=== PATIENT | female | born 1940 | race Asian ===

== ENCOUNTER 2023-12-26 10:13 | Emergency (ER) | payer MEDICARE, OTHER, SELFPAY ==
[2023-12-26 10:22] VITALS: BP 156/81
[2023-12-26] MEDS: VENTOLIN NEBULES 2.5 MG INH (11:25)
[2023-12-26 11:37] VITALS: BP 144/76
[2023-12-26 11:50] LABS: % Basophils 0.9 % (0-2); % Eosinophils 3.1 % (0-6); % Immature Granulocytes 0.2 % (0-0.5); % Lymphocytes 24.7 % (20.5-51.1); % Monocytes 10.3 % (1.7-9.3); % Neutrophils 60.8 % (42.2-75.2); Absolute Eosinophils 0.1 10^3/uL (0-0.7); Absolute Lymphocytes 1.1 10^3/uL (1.2-3.4); Absolute Monocytes 0.5 10^3/uL (0.1-0.6); Absolute Neutrophils 2.7 10^3/uL (1.4-6.5); Hematocrit 32.6 % (37.0-47.0); Hemoglobin 11.4 g/dL (12.0-16.0); Mean Corpuscular Hgb 28.1 pg (27.0-31.0); Mean Corpuscular Volume 80.5 fL (81.0-99.0); Mean Platelet Volume 9.2 fL (7.4-10.4); Nucleated Red Blood Cells % 0 %; Platelet Count 233 10^3/uL (130-400); Red Blood Cell Count 4.05 10^6/uL (4.20-5.40); Red Cell Dist. Width 13.1 % (11.5-14.5); White Blood Cell Count 4.5 10^3/uL (4.8-10.8)
[2023-12-26 12:08] LABS: COVID-19 Antigen Negative (Negative)
[2023-12-26 12:11] LABS: ALT (SGPT) 26 U/L (0-35); AST (SGOT) 29 U/L (14-36); Albumin 4.9 g/dl (3.5-5.0); Alkaline Phosphatase 77 U/L (38-126); Blood Urea Nitrogen 10 mg/dl (7-17); Calcium 9.7 mg/dl (8.4-10.2); Carbon Dioxide 25 mmol/L (22-30); Chloride 101 mmol/L (98-107); Glucose 100 mg/dl (70-99); Potassium 4.6 mmol/L (3.5-5.1); Sodium 132 mmol/L (135-145); Total Bilirubin 0.7 mg/dl (0.2-1.3); Total Protein 8.1 g/dl (6.3-8.2); eGFR > 60.00
[2023-12-26 12:13] VITALS: BP 133/69
[2023-12-26 12:21] LABS: NT-proBNP 180 pg/ml; Troponin I < 0.012 ng/ml
[2023-12-26 12:57] VITALS: BP 142/68
[2023-12-26 13:00] VITALS: BP 136/74
[2023-12-26 14:00] VITALS: BP 115/62
--- NOTE | 2023-12-26 14:18 | ED.GENMED ---
History of Present Illness
General
Chief Complaint: Cough
Source: patient
Exam Limitations: none
Time Seen by Provider: 12/26/23 10:53
Nursing documentation reviewed up to this point in time: agreed with
Travel History
Have you had any contact with someone who has COVID-19?: No
Do you have any symptoms of coronavirus? Fever > 100 degrees, chills, cough, shortness of breath, sore throat, loss of taste or smell, muscle aches, or headache?: No
History of Present Illness
History of Present Illness:
PT IS A 83 Y/O F h/o HTN, HLD
comin from home with family who care for her
started with sob and cough 1 week ago
went to [facility]
had w/u includin blood work, cxr, ekg, ct pe (they believe) which was all neg
given oral cough syrup which she finished (guaifenessin w codeine) and then she saw her pcp who gave her robitussin DM syrup and an inhaler
cough is worse and she is couhgin gfrequently at night which his why she is here
she has not had any worsening shortness of breath, chest pain, syncope, fever, vomiting, confusion, not eating, leg swelling
Past History
Past History
ED Past Medical History: HTN and Hypercholesterolemia
ED Past Surgical History: None
Social History
Tobacco: Non-smoker
Alcohol: None
Living: with family
Review of Systems
Review of Systems
Allergies reviewed?: Yes
All Other Systems: Not applicable
Phy Exam
Physical Exam
Physical Exam:
GENERAL: Alert , in no apparent distress, nontoxic, no distress
EYE: pupils equal and reactive
NECK: Supple
ENT: b/l TM s clear, pharynx erythematous but no tonsillar hypertrophy or exudates
CARDIAC: Regular rate and rhythm, no edema
LUNGS: +occ cough, faint wheezing b/l, rhonchi upper lobes b.l, no tachypnea
ABDOMEN: Soft, without focal tenderness, no r/g, no cvat, normal bowel sounds
NEUROLOGICAL: Alert and oriented, no focal neuro deficits
SKIN: Warm and dry, skin intact.
MUSCULOSKELETAL: No edema, well perfused.
PSYCH: Normal and appropriate interaction.
Course
Orders/Labs/Results
Orders:
Orders
12/26/23 11:09
CR Chest - 2 Views Urgent
Comment:
Reason For Exam: COUGH
12/26/23 11:15
Electrocardiogram (*1) Urgent
Reason for Study: Shortness of Breath
EKG- Treatment ONCE
Albuterol Nebs [Ventolin Nebules] 2.5 mg INH R NOW STA
12/26/23 11:25
COVID-19 Antigen Urgent
Source: Nasal Swab
Complete Blood Count/With Diff Urgent
Comprehensive Metabolic Panel Urgent
NT-proBNP Urgent
Troponin I Urgent
Influenza A+B Rapid Molecular Urgent
MARIA EUGENIA Source: Nasal Swab
Specimen Description:
12/26/23 14:21
Dexamethasone Sod Phosphate [Decadron] 10 mg IV NOW STA
12/26/23 14:22
Doxycycline [Vibramycin] 100 mg PO NOW STA
Abnormal Lab Results
12/26/23
11:25
WBC 4.5 L 10^3/uL
(4.8-10.8)
RBC 4.05 L 10^6/uL
(4.20-5.40)
Hgb 11.4 L g/dL
(12.0-16.0)
Hct 32.6 L %
(37.0-47.0)
MCV 80.5 L fL
(81.0-99.0)
Absolute Lymphs (auto) 1.1 L 10^3/uL
(1.2-3.4)
Monocytes % 10.3 H %
(1.7-9.3)
Sodium 132 L mmol/L
(135-145)
Creatinine 0.4 L mg/dL
(0.6-1.0)
Glucose 100 H mg/dl
(70-99)
12/26/23 11:25
12/26/23 11:25
Vital Signs
Initial and Last Documented VS:
Initial Vital Signs
Temp Pulse Resp BP Pulse Ox
99.7 F 74 18 156/81 98
12/26/23 10:22 12/26/23 10:22 12/26/23 10:22 12/26/23 10:22 12/26/23 10:22
Last Documented Vital Signs
Temp Pulse Resp BP Pulse Ox
99.7 F 70 15 115/62 96
12/26/23 10:22 12/26/23 14:30 12/26/23 14:15 12/26/23 14:00 12/26/23 14:30
MDM/Problems Addressed
Differential Diagnosis Includes:
uri, bronchitis, pneuonmina
already r/o for PE
MDM/Problems Addressed:
83-year-old female coming from home history of hypertension and hyperlipidemia here with family with report of productive cough over the last week associated with shortness of breath. Patient went to [facility] 5 days ago where she had a workup
including EKG, labs to check her heart, likely a PE study, based on the family's telling me which were all negative. Patient was discharged with a cough syrup. She continued to cough throughout the week and went her to her family doctor where they
gave her Robitussin DM and inhaler. There was no spacer given to her. She has continued to have a cough which is more productive with yellow mucus. She has not had a known fever. She is still eating and drinking and does not feel overly severely
fatigued.
On exam the patient's not hypoxic, no respiratory distress but has bilateral upper lobe rhonchi and some wheezing. She does have a wet sounding cough. She is no edema. EKG is sinus rhythm with a first-degree block with no ischemic changes. Her
chest x-ray was independently reviewed by me and appreciated to have some atelectasis versus an early pneumonia. Patient's white count is slightly low at 4.5, her troponin was negative. She feels better after an albuterol neb. She still having
some rhonchi but the wheezing improved. Will give her one-time dose of Decadron and a spacer for her inhaler. Will make sure that the patient can tolerate walking without desat
And if so we will discharge with empiric antibiotics to treat an early pneumonia versus a bronchitis. She was offered admission but family would feel most comfortable trial of outpatient management but will bring her back if she gets worse
*Critical Care Note
Total Time (30-74mins, 75-104mins- exclusive of procedures): Not Applicable
ED Attending Note
-
Portions of this chart may have been created with voice recognition software.� Occasional wrong word or��sound alike� substitutions may have occurred due to the inherent limitations of voice recognition software.
Discharge Plan
Departure
Patient Disposition: Home (Routine Discharge)
Date of Disposition: 12/26/23
Time of Disposition: 14:29
Patient with high blood pressure during this ER visit?: No
Condition: Fair
Covid-19: Not Applicable
Discharge Problem:
Acute bronchitis
Instructions: Acute Bronchitis, Adult (DC)
Prescriptions:
New
doxycycline monohydrate 100 mg capsule
100 mg PO BID Qty: 14 0RF
No Action
benzonatate 100 mg capsule
100 mg PO TID PRN (Reason: Cough) Qty: 14 0RF
Referrals:
Zeb Bowers MD [Family Provider] - Follow up in 2-3 days
Activity Restrictions/Additional Instructions:
Your mom's cough could be from bronchitis or an early pneumonia. We are treating her with antibiotics, doxycycline 100 mg twice a day for 7 days. Encourage fluids and make sure she is eating. For her cough you can use the Robitussin syrup as well
as the inhaler 1 or 2 puffs in the chamber every 4-6 hours. Make sure she uses the inhaler within her spacer and takes a deep breath and tries to hold it for 6-10 seconds
Watch her symptoms closely and return to the hospital for worsening cough, shortness of breath, chest pain, passing out, leg swelling, generalized weakness or not eating or any concerns. Otherwise follow-up with Dr. Bowers this week
Interventions
Interventions:
*ED COVID-19 Vaccine History Last Done: 12/26/23 10:22
*Nursing Disposition Last Done: 12/26/23 14:48
ED- Pulmonary Assessment Last Done: 12/26/23 11:30
Discharge Date and Time
Discharge Date/Time: 12/26/23 14:48
Print Language: KAZAKH
[2023-12-26] MEDS: VIBRAMYCIN 100 MG PO (14:36)
[2023-12-26] MEDS: DECADRON 10 MG IV (14:36)
== END 2023-12-26 14:48 | disposition home or self-care (01) ==
LOC: EMR 10:13
PROVIDERS: Physician Assistant; EMERGENCY PHYSICIAN Emergency Medicine; FAMILY PHYSICIAN Family Medicine
DX: J20.9 Acute bronchitis, unspecified (principal); Z11.52 Encounter for screening for COVID-19; I10 Essential (primary) hypertension; E78.00 Pure hypercholesterolemia, unspecified
CPT/HCPCS: 99284; 96374; 94640; 71046; 80053; 83880; 84484; 85025; 87502; 87811; 93005

== ENCOUNTER 2024-03-28 10:03 | Emergency (ER) | payer MEDICARE, OTHER, SELFPAY ==
[2024-03-28 10:06] VITALS: BP 158/75
--- NOTE | 2024-03-28 11:30 | ED.GENMED ---
History of Present Illness
General
Chief Complaint: Back Pain
Time Seen by Provider: 03/28/24 10:49
History of Present Illness
History of Present Illness:
83-year-old female with history of hypertension and hyperlipidemia presenting to the emergency department for back pain. Patient arrives with her son's note for the past month she has been having lower back pain. Denies any inciting injury or
trauma. Patient reports the back pain is right-sided. Denies significant radiation to her legs. Denies numbness to her legs. Denies any urinary or fecal incontinence. Denies fever. She tried Tylenol, Motrin, pain patch, developed a rash from
the pain patch. Yesterday, patient complaining of increased fatigue, had difficulty ambulating from generalized weakness. Denies abdominal pain, chest pain, difficulty breathing. Denies additional acute medical complaints.
Past History
Past History
ED Past Medical History: HTN and Hypercholesterolemia
ED Past Surgical History: None
Social History
Tobacco: Non-smoker
Alcohol: None
Living: with family
Phy Exam
Physical Exam
Physical Exam:
General: Well-appearing, no clinical signs of dehydration, nontoxic and in no acute distress
HEENT: protecting airway
Neck: appears supple
CV: Normal heart rate, regular rhythm, no evidence of cyanosis
Resp: No accessory muscle use, no increased work of breathing, lungs clear to auscultation bilaterally
Abd: Soft and non-distended, no tenderness to palpation, normal bowel sounds
Extremities: No deformities, no swelling, no erythema, pulses and sensation intact
Back: Tenderness to midline lumbar spine and right paraspinal musculature extending to the lateral lumbar musculature. No step-offs. 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
No redness extending beyond lidocaine patch. Range of motion to the lower extremities equal and intact. Distal pulses sensation is intact.
Neuro: alert, no focal neurologic deficit
: deferred
Rectal: deferred
Psych: Normal affect
Skin: Intact
Course
Orders/Labs/Results
Orders:
Orders
03/28/24 11:16
CT Lumbar Spine W/o Iv Contras Urgent
Comment:
Reason For Exam: pain x 1 month, midline and L-lateral
03/28/24 11:17
Ketorolac [Toradol] 15 mg IV NOW STA
03/28/24 11:39
Basic Metabolic Panel Urgent
Complete Blood Count/With Diff Urgent
03/28/24 13:16
Urinalysis Reflex To Culture Urgent
Date Specimen was Collected: 03/28/24
Time Specimen was Collected: 13:05
03/28/24 14:07
Case Management Consult ONCE
Case Management Consult: VN/Home Care
Abnormal Lab Results
03/28/24
11:39
MPV 10.7 H fL
(7.4-10.4)
Absolute Lymphs (auto) 1.1 L 10^3/uL
(1.2-3.4)
Lymphocytes % 20.2 L %
(20.5-51.1)
Creatinine 0.5 L mg/dL
(0.6-1.0)
Glucose 118 H mg/dl
(70-99)
03/28/24 11:39
03/28/24 11:39
Vital Signs
Initial and Last Documented VS:
Initial Vital Signs
Temp Pulse Resp BP Pulse Ox
98.1 F 66 18 158/75 98
03/28/24 10:06 03/28/24 10:06 03/28/24 10:06 03/28/24 10:06 03/28/24 10:06
Last Documented Vital Signs
Temp Pulse Resp BP Pulse Ox
98.1 F 62 19 146/70 97
03/28/24 10:06 03/28/24 13:21 03/28/24 13:21 03/28/24 13:21 03/28/24 13:21
MDM/Problems Addressed
MDM/Problems Addressed:
83-year-old female with history of hypertension hyperlipidemia presenting for 1 month of lower back pain. Vital signs ar significant for mild hypertension.
On exam, patient well-appearing, no acute distress, resting comfortably. Generalized tenderness to the upper lumbar spine as well as the right paraspinal musculature and lateral lumbar musculature. No report of trauma with lower suspicion for
acute fracture or malalignment. Range of motion of the back is intact. Patient does have an area of redness at the lumbar back, however clearly demarcated from prior lidocaine patch. Suspect a skin reaction from dermatographia rather than
infectious component. Do not suspect deep space infection. No weakness to lower extremities, no numbness. No report of bowel/bladder issues. Lower suspicion for spinal compressive issue. Suspect musculoskeletal versus sciatic component to
symptoms. Given duration of symptoms, will obtain CT back imaging as well as laboratory analysis.
14:10 -patient's labs are unremarkable. CT shows degenerative changes and disc bulges, consistent with patient's symptoms. Patient was able to ambulate, reports feeling better after Toradol. At this time, again lower suspicion for severe
pathology. Patient was slightly unsteady, would benefit from home physical therapy. Did consult with case management who was able to provide referral. Explained to family, agreeable to plan. Return precautions discussed and patient and family
verbalized understanding
*Critical Care Note
Total Time (30-74mins, 75-104mins- exclusive of procedures): Not Applicable
ED Attending Note
-
Portions of this chart may have been created with voice recognition software.� Occasional wrong word or��sound alike� substitutions may have occurred due to the inherent limitations of voice recognition software.
Discharge Plan
Departure
Prescriptions:
No Action
benzonatate 100 mg capsule
100 mg PO TID PRN (Reason: Cough) Qty: 14 0RF
doxycycline monohydrate 100 mg capsule
100 mg PO BID Qty: 14 0RF
Referrals:
Zeb Bowers MD [Family Provider] -
Interventions
Interventions:
*Risk Screen - Suicide Last Done: 03/28/24 10:06
*General Assessment Last Done: 03/28/24 10:06
*Neglect/Abuse Screening Last Done: 03/28/24 10:06
*ED COVID-19 Vaccine History Last Done: 03/28/24 10:06
ED-Musculoskeletal Assessment Last Done: 03/28/24 11:47
Discharge Date and Time
Print Language: ESTONIAN
[2024-03-28 11:33] VITALS: BMI 22.3
[2024-03-28] MEDS: TORADOL 15 MG IV (11:43)
[2024-03-28 11:47] VITALS: BP 137/73
[2024-03-28 12:06] LABS: % Basophils 0.5 % (0-2); % Eosinophils 2.7 % (0-6); % Immature Granulocytes 0.2 % (0-0.5); % Lymphocytes 20.2 % (20.5-51.1); % Monocytes 6.6 % (1.7-9.3); % Neutrophils 69.8 % (42.2-75.2); Absolute Eosinophils 0.2 10^3/uL (0-0.7); Absolute Lymphocytes 1.1 10^3/uL (1.2-3.4); Absolute Monocytes 0.4 10^3/uL (0.1-0.6); Absolute Neutrophils 3.9 10^3/uL (1.4-6.5); Hemoglobin 12.7 g/dL (12.0-16.0); Mean Corp Hgb Conc. 34.3 g/dL (33.0-37.0); Mean Corpuscular Hgb 28.3 pg (27.0-31.0); Mean Corpuscular Volume 82.4 fL (81.0-99.0); Mean Platelet Volume 10.7 fL (7.4-10.4); Nucleated Red Blood Cells % 0 %; Platelet Count 216 10^3/uL (130-400); Red Blood Cell Count 4.49 10^6/uL (4.20-5.40); Red Cell Dist. Width 14.2 % (11.5-14.5); White Blood Cell Count 5.6 10^3/uL (4.8-10.8)
[2024-03-28 12:34] LABS: Blood Urea Nitrogen 11 mg/dl (7-17); Calcium 9.6 mg/dl (8.4-10.2); Carbon Dioxide 23 mmol/L (22-30); Chloride 103 mmol/L (98-107); Estimated Creatinine Clearance 52 ml/min; Glucose 118 mg/dl (70-99); Sodium 136 mmol/L (135-145); eGFR > 60.00
[2024-03-28 13:21] VITALS: BP 146/70
[2024-03-28 13:31] LABS: Urine Albumin Negative (Neg - Trace); Urine Bilirubin Negative (Negative); Urine Character Clear (Clear); Urine Color Straw; Urine Glucose Negative (Negative); Urine Ketone Negative (Negative); Urine Leukocyte Negative (Negative); Urine Nitrite Negative (Negative); Urine Occult Blood Negative (Negative); Urine Urobilinogen Negative (Neg - 1+)
--- NOTE | 2024-03-28 14:17 | CM ---
CM reviewed medical records. CM was consulted for VN. CM met with patient and family in room. Patient and family are agreeable to [facility]. Referral sent to [facility] residential collections. CM updated bedside RN and ED physician.
[2024-03-28 14:48] VITALS: BP 141/73
--- NOTE | 2024-03-28 15:09 | VNURNOTE ---
Went to patient's ER room to meet and explain [facility] services. No one in room. Call placed to patient's daughter, Virginia, no answer. [facility] liaison left message with contact info. Referral placed in [facility].
== END 2024-03-28 15:07 | disposition home or self-care (01) ==
LOC: EMR 10:03
PROVIDERS: EMERGENCY PHYSICIAN Student in an Organized Health Care Education/Training Program; FAMILY PHYSICIAN Family Medicine
DX: M54.50 Low back pain, unspecified (principal); R53.83 Other fatigue; R53.1 Weakness; R26.2 Difficulty in walking, not elsewhere classified; L50.3 Dermatographic urticaria; I10 Essential (primary) hypertension; E78.00 Pure hypercholesterolemia, unspecified
CPT/HCPCS: 99284; 96374; 72131; 80048; 81003; 85025

== ENCOUNTER 2024-04-06 01:30 | Emergency (ER) | payer MEDICARE, OTHER, SELFPAY ==
[2024-04-06 01:33] VITALS: BP 137/72
[2024-04-06 01:55] LABS: COVID-19 Antigen Positive (Negative)
[2024-04-06 02:12] VITALS: BP 151/69
--- NOTE | 2024-04-06 02:17 | ED.GENMED ---
History of Present Illness
<JEAN Garcia - Last Filed: 04/06/24 03:42>
General
Chief Complaint: Breathing Problem
Source: family
Exam Limitations: none
Time Seen by Provider: 04/06/24 01:52
History of Present Illness
History of Present Illness:
Patient is an 83 y/o Bel[place]an speaking female with PMHx of HTN and HLD presenting with shortness of breath x5 hours. The patient's son is interpreting. She states she started experiencing shortness of breath and difficulty breathing at around 9
o'clock tonight. She states it came on suddenly and occurs all the time. She states she took Theraflu an hour ago which made her breathing worse. She states she is also experiencing a headache that starts at the top of her head and radiates to the
back of her neck. She states this is new for her and also started at 9pm tonight. She took Ketorolac an hour ago with no relief. She also states she has a cough that started an hour ago. She states it is dry cough and she is not coughing up phlegm.
She denies any fever, sore throat, chest pain, nausea, vomiting, diarrhea, urinary symptoms, or weight loss. She denies any recent sick contacts.
Past History
<JEAN Garcia - Last Filed: 04/06/24 03:42>
Past History
ED Past Medical History: HTN and Hypercholesterolemia
ED Past Surgical History: None
Social History
Tobacco: Non-smoker
Alcohol: None
Living: with family
Phy Exam
<JEAN Garcia - Last Filed: 04/06/24 03:42>
Physical Exam
Physical Exam:
GENERAL: Alert , in no apparent distress
EYE: pupils equal and reactive
Throat: Airway intact, no exudates
NECK: Supple, no significant adenopathy.
CARDIAC: Regular rate and rhythm . No murmurs.
LUNGS: Clear breath sounds bilaterally, no acute respiratory distress, no wheezes/rales/rhonchi
ABDOMEN: Soft, nondistended, nontender.
NEUROLOGICAL: Alert and oriented, no focal neuro deficits
SKIN: Warm and dry, skin intact. No obvious signs of dehydration.
MUSCULOSKELETAL: No edema, well perfused. Full ROM of the neck. No pain on palpation of the neck.
PSYCH: Normal and appropriate interaction.
Scores
<JEAN Garcia - Last Filed: 04/06/24 03:42>
Heart Failure Risk
Heart Failure Risk Score: Not Applicable
Course
<Avila Brooke [facility] - Last Filed: 04/06/24 03:42>
Orders/Labs/Results
Orders:
Orders
04/06/24 01:37
Electrocardiogram (*1) Urgent
Reason for Study: Shortness of Breath
EKG- Treatment ONCE
04/06/24 01:43
COVID-19 Antigen Urgent
Source: Nasal Swab
Influenza A+B Rapid Molecular Urgent
MARIA EUGENIA Source: Nasal Swab
Specimen Description:
04/06/24 02:02
Cardiac Monitoring- Treatment ONCE
O2 Therapy [RESP] Urgent
Titrate/Wean O2 to maintain O2 sat greater than (%): 93
Special Instructions: TO MAINTAIN CONTINUOUS O2 SATS >/= 93%
04/06/24 02:33
Complete Blood Count/With Diff Urgent
Comprehensive Metabolic Panel Urgent
NT-proBNP Urgent
Troponin I Urgent
04/06/24 02:50
CR Chest - 2 Views Urgent
Comment:
Reason For Exam: Shortness of breath
04/06/24 03:34
Nirmatrelvir/Ritonavir [Paxlovid 2X150 mg-100 mg Dose Pack] 1 dose PO NOW STA
Abnormal Lab Results
04/06/24 04/06/24
01:43 02:33
RBC 4.03 L 10^6/uL
(4.20-5.40)
Hgb 11.4 L g/dL
(12.0-16.0)
Hct 32.3 L %
(37.0-47.0)
MCV 80.1 L fL
(81.0-99.0)
Absolute Lymphs (auto) 0.6 L 10^3/uL
(1.2-3.4)
Lymphocytes % 13.0 L %
(20.5-51.1)
Monocytes % 13.0 H %
(1.7-9.3)
Creatinine 0.5 L mg/dL
(0.6-1.0)
Glucose 132 H mg/dl
(70-99)
SARS-CoV-2 Antigen Positive A
(Negative)
04/06/24 02:33
04/06/24 02:33
Vital Signs
Initial and Last Documented VS:
Initial Vital Signs
Temp Pulse Resp BP Pulse Ox
98.5 F 71 16 137/72 99
04/06/24 01:33 04/06/24 01:33 04/06/24 01:33 04/06/24 01:33 04/06/24 01:33
Last Documented Vital Signs
Temp Pulse Resp BP Pulse Ox
98.1 F 65 14 151/69 98
04/06/24 02:00 04/06/24 02:45 04/06/24 02:45 04/06/24 02:12 04/06/24 02:45
Joselt;Ross Conway DO - Last Filed: 04/06/24 03:42>
Orders/Labs/Results
Orders:
Orders
04/06/24 01:37
Electrocardiogram (*1) Urgent
Reason for Study: Shortness of Breath
EKG- Treatment ONCE
04/06/24 01:43
COVID-19 Antigen Urgent
Source: Nasal Swab
Influenza A+B Rapid Molecular Urgent
MARIA EUGENIA Source: Nasal Swab
Specimen Description:
04/06/24 02:02
Cardiac Monitoring- Treatment ONCE
O2 Therapy [RESP] Urgent
Titrate/Wean O2 to maintain O2 sat greater than (%): 93
Special Instructions: TO MAINTAIN CONTINUOUS O2 SATS >/= 93%
04/06/24 02:33
Complete Blood Count/With Diff Urgent
Comprehensive Metabolic Panel Urgent
NT-proBNP Urgent
Troponin I Urgent
04/06/24 02:50
CR Chest - 2 Views Urgent
Comment:
Reason For Exam: Shortness of breath
04/06/24 03:34
Nirmatrelvir/Ritonavir [Paxlovid 2X150 mg-100 mg Dose Pack] 1 dose PO NOW STA
Abnormal Lab Results
04/06/24 04/06/24
01:43 02:33
RBC 4.03 L 10^6/uL
(4.20-5.40)
Hgb 11.4 L g/dL
(12.0-16.0)
Hct 32.3 L %
(37.0-47.0)
MCV 80.1 L fL
(81.0-99.0)
Absolute Lymphs (auto) 0.6 L 10^3/uL
(1.2-3.4)
Lymphocytes % 13.0 L %
(20.5-51.1)
Monocytes % 13.0 H %
(1.7-9.3)
Creatinine 0.5 L mg/dL
(0.6-1.0)
Glucose 132 H mg/dl
(70-99)
SARS-CoV-2 Antigen Positive A
(Negative)
04/06/24 02:33
04/06/24 02:33
Vital Signs
Initial and Last Documented VS:
Initial Vital Signs
Temp Pulse Resp BP Pulse Ox
98.5 F 71 16 137/72 99
04/06/24 01:33 04/06/24 01:33 04/06/24 01:33 04/06/24 01:33 04/06/24 01:33
Last Documented Vital Signs
Temp Pulse Resp BP Pulse Ox
98.1 F 65 14 151/69 98
04/06/24 02:00 04/06/24 02:45 04/06/24 02:45 04/06/24 02:12 04/06/24 02:45
<JEAN Garcia - Last Filed: 04/06/24 03:42>
MDM/Problems Addressed
Differential Diagnosis Includes:
Differential diagnosis includes but is not limited to covid, flu, pneumonia.
<JEAN Garcia - Last Filed: 04/06/24 03:42>
*Radiology
Radiology exam reviewed: radiology read reviewed
*Pulse Oximetry
Patient hypoxic: no
*EKG
Interpreted by ED Provider?: Yes
EKG Intrepretation Date: 04/06/24
Interpretation: abnormal
Comparison EKG: no changes
Heart Rate: 67
Rate: normal
Rhythm: sinus
[place]: normal axis
Interval: first degree heart block
QRS Pattern: normal QRS
Ischemia: no ischemia
*Machine Setter Automatic Interpretation
Rate: Machine Setter Automatic- N/A
*Critical Care Note
Total Time (30-74mins, 75-104mins- exclusive of procedures): Not Applicable
<Ross Conway DO - Last Filed: 04/06/24 03:42>
*Radiology
Radiology exam reviewed: all reviewed NAD by ED Provider
<JEAN Garcia - Last Filed: 04/06/24 03:42>
Update Note
Update Note:
Rapid covid positive. CXR is unremarkable.
ED Attending Note
<JEAN Garcia - Last Filed: 04/06/24 03:42>
-
Portions of this chart may have been created with voice recognition software.� Occasional wrong word or��sound alike� substitutions may have occurred due to the inherent limitations of voice recognition software.
<Ross Conway DO - Last Filed: 04/06/24 03:42>
ED Attending Note
Patient seen and examined by attending physician: Yes
I performed the substantive portion of visit, reviewed & personally made and approve the management plan that is documented in note by myself or LILLIE.: Yes
ED Attending Note:
This a pleasant 83-year-old female presents with shortness of breath, headache, and high blood pressure. Patient started experiencing this shortness of breath around 9 PM. She took TheraFlu which did not help. Patient states that her shortness of
breath has improved. Patient does report having a dry cough. Denies fever, chills, chest pain, or nausea or vomiting. Patient was seen in conjunction with the PA student. I have reviewed and agree with the history and treatment plan presented.
On my independent physical exam, patient is awake, alert, and oriented x3, no acute distress. Accompanied by her son who is present at the bedside. Heart is regular rate and rhythm. Lungs are clear to auscultation bilaterally without wheezes
rales or rhonchi. She is acting appropriately according to son.
Patient tested positive for COVID. Will start Paxlovid. Patient to be discharged home.
Discharge Plan
Departure
Patient Disposition: Home (Routine Discharge)
Date of Disposition: 04/06/24
Time of Disposition: 03:40
Patient with high blood pressure during this ER visit?: Yes
Condition: Good
Covid-19: Confirmed COVID-19
Discharge Problem:
COVID-19
Instructions: Nirmatrelvir and Ritonavir, COVID-19 in adults - Discharge instructions
Prescriptions:
New
Paxlovid 300 mg (150 mg x 2)-100 mg tablets,dose pack
See Rx Instructions .ROUTE .COMPLEX Qty: 30 0RF
Rx Instructions:
take TWO 150 mg tablets of nirmatrelvir with ONE 100 mg tablet of ritonavir twice daily for 5 days
No Action
Amlodipine Bestlate
5 mg PO DAILY
atorvastatin 20 mg Tablet
20 mg PO DAILY
ketorolac 10 mg Tablet
10 mg PO Q8H PRN (Reason: pain)
Rx Instructions:
maximum total duration of 5 days from all oral, intranasal, or parenteral formulations
pitavastatin calcium 4 mg Tablet
4 mg PO DAILY
Referrals:
Zeb Bowers MD [Family Provider] -
Activity Restrictions/Additional Instructions:
Your prescriptions were sent electronically to the pharmacy that you specified.
It was a pleasure meeting you and taking part in your care. We hope for your continued healing and wellness.
Please read discharge instructions in their entirety. However, they are for general education and may not describe your exact diagnosis at discharge. Information on your ER visit and medical conditions were discussed with you along with appropriate
follow up information...
If indicated, please take your medications as instructed and indicated on discharge paperwork.
Please schedule a follow up appointment as directed. Call to schedule an appointment
Please return to the emergency department with ANY change in, persisting, or worsening of symptoms. If any of your symptoms do not improve, or persist, or become more severe within 6-12 hours, please return to the emergency department for further
care.
Please return to the emergency department if you develop a headache, neck pain/stiffness, fever greater than 100.4F, chest pain, shortness of breath, persistent nausea, vomiting, slurred speech, difficulty walking, numbness/tingling, weakness, signs
of infection or any other symptoms that are worrisome to you.
If you have any questions or concerns please do not hesitate to call the Hospital at or E-mail me directly at [email or web address]
Interventions
Interventions:
*Risk Screen - Suicide Last Done: 04/06/24 02:00
*General Assessment Last Done: 04/06/24 01:33
ED- Fall Risk Assessment Last Done: 04/06/24 02:00
*ED COVID-19 Vaccine History Last Done: 04/06/24 01:33
ED- Cardiac Assessment Last Done: 04/06/24 02:00
ED- Pulmonary Assessment Last Done: 04/06/24 02:00
Discharge Date and Time
Print Language: PAKISTANI
[2024-04-06 02:39] LABS: % Eosinophils 3.3 % (0-6); % Immature Granulocytes 0.2 % (0-0.5); % Neutrophils 69.5 % (42.2-75.2); Absolute Basophils 0.1 10^3/uL (0-0.2); Absolute Eosinophils 0.2 10^3/uL (0-0.7); Absolute Lymphocytes 0.6 10^3/uL (1.2-3.4); Absolute Monocytes 0.6 10^3/uL (0.1-0.6); Absolute Neutrophils 3.3 10^3/uL (1.4-6.5); Hematocrit 32.3 % (37.0-47.0); Hemoglobin 11.4 g/dL (12.0-16.0); Mean Corp Hgb Conc. 35.3 g/dL (33.0-37.0); Mean Corpuscular Hgb 28.3 pg (27.0-31.0); Mean Corpuscular Volume 80.1 fL (81.0-99.0); Mean Platelet Volume 9.7 fL (7.4-10.4); Nucleated Red Blood Cells % 0 %; Platelet Count 183 10^3/uL (130-400); Red Blood Cell Count 4.03 10^6/uL (4.20-5.40); Red Cell Dist. Width 13.9 % (11.5-14.5); White Blood Cell Count 4.8 10^3/uL (4.8-10.8)
[2024-04-06 02:53] LABS: ALT (SGPT) 21 U/L (0-35); AST (SGOT) 29 U/L (14-36); Albumin 4.8 g/dl (3.5-5.0); Alkaline Phosphatase 76 U/L (38-126); Blood Urea Nitrogen 7 mg/dl (7-17); Calcium 9.2 mg/dl (8.4-10.2); Carbon Dioxide 22 mmol/L (22-30); Chloride 102 mmol/L (98-107); Glucose 132 mg/dl (70-99); Potassium 3.9 mmol/L (3.5-5.1); Sodium 135 mmol/L (135-145); Total Protein 7.4 g/dl (6.3-8.2); eGFR > 60.00
[2024-04-06 03:06] LABS: NT-proBNP 158 pg/ml; Troponin I 0.013 ng/ml
[2024-04-06 03:09] VITALS: BP 159/74
[2024-04-06 04:00] VITALS: BP 116/62
[2024-04-06] MEDS: PAXLOVID 2X150 MG-100 MG DOSE PACK 1 DOSE PO (04:04)
== END 2024-04-06 04:10 | disposition home or self-care (01) ==
LOC: EMR 01:30
PROVIDERS: EMERGENCY PHYSICIAN Student in an Organized Health Care Education/Training Program; FAMILY PHYSICIAN Family Medicine
DX: R06.02 Shortness of breath (principal); I10 Essential (primary) hypertension; E78.00 Pure hypercholesterolemia, unspecified
CPT/HCPCS: 99283; 71046; 80053; 83880; 84484; 85025; 87502; 87811; 93005

== ENCOUNTER 2024-06-02 18:05 | Emergency (ER) | payer MEDICARE, OTHER, SELFPAY ==
[2024-06-02 18:11] VITALS: BP 129/68
--- NOTE | 2024-06-02 18:11 | ED.GENMED ---
ED Provider Triage
<Mihaela Antonio PA-C - Last Filed: 06/02/24 18:16>
-
Patient seen by provider in Triage?: Seen in Triage
Attestation: A medical screening examination has been initiated by a qualified medical provider. Based on the assessment performed at this time, it has been determined that an emergent medical condition may exist and the patient has been informed
that further medical evaluation and possible additional diagnostic testing may be needed.
HPI: 83yoF here with generalized weakness, fatigue, cough x 2 days. Also having dizziness. Daughter is providing translation.
GENERAL: Alert , in no apparent distress
EYE: No visual abnormalities.
NECK: Trachea midline
ENT: No visible abnormalities.
LUNGS: No acute respiratory distress
NEUROLOGICAL: Alert and oriented
SKIN: Skin intact. No visible changes.
MUSCULOSKELETAL: Moving extremities normally
PSYCH: Normal and appropriate interaction.
This is a medical evaluation conducted in person to initiate diagnostic evaluation and provide initial therapeutics. Please see further documentation by the treating clinician.
Cardiac labs, EKG, COVID/flu swab, and CXR ordered.
History of Present Illness
<Mihaela Antonio PA-C - Last Filed: 06/02/24 18:16>
General
Chief Complaint: Breathing Problem
Time Seen by Provider: 06/02/24 20:45
<PAT Hawkins - Last Filed: 06/02/24 21:21>
General
Source: family
Exam Limitations: none
Nursing documentation reviewed up to this point in time: agreed with
History of Present Illness
History of Present Illness:
Patient is an 83 yr old female brought to the ER by daughters who live with patient. Daughters report patient has had cold symptoms for the past several days with cough and they were concerned about her breathing. They report no fever. They
report cough seems to worsen in the middle of the night. No other sick contacts at home. They do report patient is eating and drinking however has slight decreased appetite and seems weaker than normal. Pt denies any chest pain, no cardiac
history.
Patient presents awake alert she denies any shortness of breath now she denies any chest pain currently.
Past History
<Mihaela Antonio PA-C - Last Filed: 06/02/24 18:16>
Past History
ED Past Medical History: HTN and Hypercholesterolemia
ED Past Surgical History: None
Social History
Tobacco: Non-smoker
Alcohol: None
Living: with family
Review of Systems
<PAT Hawkins - Last Filed: 06/02/24 21:21>
Review of Systems
Allergies reviewed?: Yes
Other source history: family
Constitutional: Reports fatigue
EENT: Reports no symptoms
Respiratory: Reports cough and trouble breathing
Cardiac: Reports no symptoms; Denies chest pain or palpitations
ABD/GI: Reports other (dec appetite); Denies abdominal pain or vomiting
: Reports no symptoms
Musculoskeletal: Reports no symptoms
Skin: Reports no symptoms
Neurological: Reports no symptoms
Psychiatric: Reports no symptoms
Phy Exam
<PAT Hawkins - Last Filed: 06/02/24 21:21>
General Physical Exam
General Presentation: well appearing
General age: appears stated age
General Skin: warm and dry
General Habitus: elderly
General Mental: alert
General Hydration: appears well hydrated
Cardiovascular Exam
Cardiovascular Exam: regular rate/rhythm, no murmur and normal peripheral pulses
Pulmonary Exam
Pulmonary Exam: lungs clear and no respiratory distress
Neurological Exam
Neurological Exam: alert and oriented x3
Musculoskeletal Exam
Musculoskeletal Exam: full ROM
Skin Exam
Skin Exam: normal color and warm/dry
Psychiatric Exam
Psychiatric Exam: normal mood/affect
Scores
<PAT Hawkins - Last Filed: 06/02/24 21:21>
Heart Failure Risk
Heart Failure Risk Score: Not Applicable
Course
<Mihaela Antonio PA-C - Last Filed: 06/02/24 18:16>
Orders/Labs/Results
Orders:
Orders
06/02/24 18:14
Electrocardiogram (*1) Urgent
Reason for Study: Vertigo / Dizzy
EKG- Treatment ONCE
06/02/24 18:16
CR Chest - 2 Views Urgent
Comment:
Reason For Exam: Cough
06/02/24 18:27
COVID-19 Antigen Urgent
Source: Nasal Swab
Complete Blood Count/With Diff Urgent
Comprehensive Metabolic Panel Urgent
Troponin I Urgent
Influenza A+B Rapid Molecular Urgent
MARIA EUGENIA Source: Nasal Swab
Specimen Description:
Abnormal Lab Results
06/02/24
18:27
RBC 4.13 L 10^6/uL
(4.20-5.40)
Hgb 11.4 L g/dL
(12.0-16.0)
Hct 32.7 L %
(37.0-47.0)
MCV 79.2 L fL
(81.0-99.0)
Absolute Lymphs (auto) 0.8 L 10^3/uL
(1.2-3.4)
Lymphocytes % 15.5 L %
(20.5-51.1)
Monocytes % 9.5 H %
(1.7-9.3)
Creatinine 0.5 L mg/dL
(0.6-1.0)
Glucose 122 H mg/dl
(70-99)
06/02/24 18:27
06/02/24 18:27
Vital Signs
Initial and Last Documented VS:
Initial Vital Signs
Temp Pulse Resp BP Pulse Ox
98.5 F 65 18 129/68 98
06/02/24 18:11 06/02/24 18:11 06/02/24 18:11 06/02/24 18:11 06/02/24 18:11
Last Documented Vital Signs
Temp Pulse Resp BP Pulse Ox
98.5 F 65 18 158/71 100
06/02/24 18:11 06/02/24 18:11 06/02/24 18:11 06/02/24 20:51 06/02/24 20:51
<PAT Hawkins - Last Filed: 06/02/24 21:21>
Orders/Labs/Results
Orders:
Orders
06/02/24 18:14
Electrocardiogram (*1) Urgent
Reason for Study: Vertigo / Dizzy
EKG- Treatment ONCE
06/02/24 18:16
CR Chest - 2 Views Urgent
Comment:
Reason For Exam: Cough
06/02/24 18:27
COVID-19 Antigen Urgent
Source: Nasal Swab
Complete Blood Count/With Diff Urgent
Comprehensive Metabolic Panel Urgent
Troponin I Urgent
Influenza A+B Rapid Molecular Urgent
MARIA EUGENIA Source: Nasal Swab
Specimen Description:
Abnormal Lab Results
06/02/24
18:27
RBC 4.13 L 10^6/uL
(4.20-5.40)
Hgb 11.4 L g/dL
(12.0-16.0)
Hct 32.7 L %
(37.0-47.0)
MCV 79.2 L fL
(81.0-99.0)
Absolute Lymphs (auto) 0.8 L 10^3/uL
(1.2-3.4)
Lymphocytes % 15.5 L %
(20.5-51.1)
Monocytes % 9.5 H %
(1.7-9.3)
Creatinine 0.5 L mg/dL
(0.6-1.0)
Glucose 122 H mg/dl
(70-99)
06/02/24 18:27
06/02/24 18:27
Vital Signs
Initial and Last Documented VS:
Initial Vital Signs
Temp Pulse Resp BP Pulse Ox
98.5 F 65 18 129/68 98
06/02/24 18:11 06/02/24 18:11 06/02/24 18:11 06/02/24 18:11 06/02/24 18:11
Last Documented Vital Signs
Temp Pulse Resp BP Pulse Ox
98.5 F 65 18 158/71 100
06/02/24 18:11 06/02/24 18:11 06/02/24 18:11 06/02/24 20:51 06/02/24 20:51
<PAT Hawkins - Last Filed: 06/02/24 21:21>
MDM/Problems Addressed
Differential Diagnosis Includes:
Not limited to viral syndrome pneumonia COVID influenza
MDM/Problems Addressed:
Patient presented with cough fatigue over the past several days brought by daughters who live with patient. Patient has not had a fever and is afebrile here lungs are clear nonhypoxic nontachypneic nontachycardic no complaints of shortness of
breath here. No acute findings on chest x-ray(parenchymal scarring in the left upper lobe ) . Patient has a normal white count negative COVID-negative flu no complaints of chest pain however troponin was done and negative, normal electrolytes.
Stable hemoglobin 11.4
Patient ambulated here in the ER and is not hypoxic nontachypneic symptoms are likely viral syndrome.
Patient is stable for discharge home.
<PAT Hawkins - Last Filed: 06/02/24 21:21>
*Radiology
Radiology exam reviewed: radiology read reviewed
*Pulse Oximetry
Patient hypoxic: no
*EKG
Interpreted by ED Provider?: Yes
Comparison EKG: no changes
Heart Rate: 67
Rate: normal
Rhythm: sinus
*Critical Care Note
Total Time (30-74mins, 75-104mins- exclusive of procedures): Not Applicable
ED Attending Note
<Mihaela Antonio PA-C - Last Filed: 06/02/24 18:16>
-
Portions of this chart may have been created with voice recognition software.� Occasional wrong word or��sound alike� substitutions may have occurred due to the inherent limitations of voice recognition software.
Discharge Plan
Departure
Patient Disposition: Home (Routine Discharge)
Date of Disposition: 06/02/24
Time of Disposition: 21:14
Patient with high blood pressure during this ER visit?: Yes
Condition: Fair
Covid-19: Negative COVID-19
Discharge Problem:
Acute viral syndrome, Cough
Instructions: Cough in adults
Prescriptions:
No Action
Amlodipine Bestlate
5 mg PO DAILY
atorvastatin 20 mg Tablet
20 mg PO DAILY
ketorolac 10 mg Tablet
10 mg PO Q8H PRN (Reason: pain)
Rx Instructions:
maximum total duration of 5 days from all oral, intranasal, or parenteral formulations
pitavastatin calcium 4 mg Tablet
4 mg PO DAILY
Paxlovid 300 mg (150 mg x 2)-100 mg tablets,dose pack
See Rx Instructions .ROUTE .COMPLEX Qty: 30 0RF
Rx Instructions:
take TWO 150 mg tablets of nirmatrelvir with ONE 100 mg tablet of ritonavir twice daily for 5 days
Activity Restrictions/Additional Instructions:
Increase fluids. Follow-up with family doctor in the next several days for reevaluation of your symptoms .
return if any worsening of symptoms including worsening fever shortness of breath or any further concerns
Interventions
Interventions:
*Risk Screen - Suicide Last Done: 06/02/24 18:11
*General Assessment Last Done: 06/02/24 18:11
*Neglect/Abuse Screening Last Done: 06/02/24 18:11
*ED COVID-19 Vaccine History Last Done: 06/02/24 18:11
ED- Cardiac Assessment Last Done: 06/02/24 20:50
ED- Pulmonary Assessment Last Done: 06/02/24 20:50
Discharge Date and Time
Print Language: PARAGUAYAN
[2024-06-02 18:46] LABS: % Basophils 0.6 % (0-2); % Immature Granulocytes 0.4 % (0-0.5); % Lymphocytes 15.5 % (20.5-51.1); % Monocytes 9.5 % (1.7-9.3); Absolute Eosinophils 0.2 10^3/uL (0-0.7); Absolute Lymphocytes 0.8 10^3/uL (1.2-3.4); Absolute Monocytes 0.5 10^3/uL (0.1-0.6); Absolute Neutrophils 3.6 10^3/uL (1.4-6.5); Hematocrit 32.7 % (37.0-47.0); Hemoglobin 11.4 g/dL (12.0-16.0); Mean Corp Hgb Conc. 34.9 g/dL (33.0-37.0); Mean Corpuscular Hgb 27.6 pg (27.0-31.0); Mean Corpuscular Volume 79.2 fL (81.0-99.0); Mean Platelet Volume 9.4 fL (7.4-10.4); Nucleated Red Blood Cells % 0 %; Platelet Count 206 10^3/uL (130-400); Red Blood Cell Count 4.13 10^6/uL (4.20-5.40); Red Cell Dist. Width 13.4 % (11.5-14.5)
[2024-06-02 18:53] LABS: ALT (SGPT) 20 U/L (0-35); AST (SGOT) 24 U/L (14-36); Albumin 4.8 g/dl (3.5-5.0); Alkaline Phosphatase 75 U/L (38-126); Blood Urea Nitrogen 8 mg/dl (7-17); Carbon Dioxide 22 mmol/L (22-30); Chloride 100 mmol/L (98-107); Glucose 122 mg/dl (70-99); Potassium 4.3 mmol/L (3.5-5.1); Sodium 137 mmol/L (135-145); Total Bilirubin 0.7 mg/dl (0.2-1.3); Total Protein 7.7 g/dl (6.3-8.2); eGFR > 60.00
[2024-06-02 18:54] LABS: COVID-19 Antigen Negative (Negative)
[2024-06-02 19:03] LABS: Troponin I < 0.012 ng/ml
[2024-06-02 20:51] VITALS: BP 158/71
== END 2024-06-02 21:54 | disposition home or self-care (01) ==
LOC: EMR 18:05
PROVIDERS: Physician Assistant; EMERGENCY PHYSICIAN Emergency Medicine
DX: B34.9 Viral infection, unspecified (principal); R05.9 Cough, unspecified; R53.83 Other fatigue; R42 Dizziness and giddiness; Z11.52 Encounter for screening for COVID-19; I10 Essential (primary) hypertension; E78.00 Pure hypercholesterolemia, unspecified
CPT/HCPCS: 99283; 71046; 80053; 84484; 85025; 87502; 87811; 93005

== ENCOUNTER 2024-07-29 18:29 | Emergency (ER) | payer MEDICARE, OTHER, SELFPAY ==
[2024-07-29 18:33] VITALS: BP 138/73
[2024-07-29 19:16] LABS: % Basophils 0.5 % (0-2); % Eosinophils 0.3 % (0-6); % Immature Granulocytes 0.2 % (0-0.5); % Lymphocytes 11.7 % (20.5-51.1); % Monocytes 10.3 % (1.7-9.3); Absolute Lymphocytes 0.7 10^3/uL (1.2-3.4); Absolute Monocytes 0.6 10^3/uL (0.1-0.6); Absolute Neutrophils 4.7 10^3/uL (1.4-6.5); Hematocrit 37.4 % (37.0-47.0); Hemoglobin 12.4 g/dL (12.0-16.0); Mean Corp Hgb Conc. 33.2 g/dL (33.0-37.0); Mean Corpuscular Hgb 27.9 pg (27.0-31.0); Mean Platelet Volume 9.6 fL (7.4-10.4); Nucleated Red Blood Cells % 0 %; Platelet Count 211 10^3/uL (130-400); Red Blood Cell Count 4.45 10^6/uL (4.20-5.40); White Blood Cell Count 6.1 10^3/uL (4.8-10.8)
[2024-07-29 19:35] LABS: ALT (SGPT) 23 U/L (0-35); AST (SGOT) 28 U/L (14-36); Albumin 5.4 g/dl (3.5-5.0); Alkaline Phosphatase 71 U/L (38-126); Blood Urea Nitrogen 11 mg/dl (7-17); Calcium 9.3 mg/dl (8.4-10.2); Carbon Dioxide 24 mmol/L (22-30); Chloride 95 mmol/L (98-107); Glucose 163 mg/dl (70-99); Potassium 4.3 mmol/L (3.5-5.1); Sodium 134 mmol/L (135-145); Total Bilirubin 0.6 mg/dl (0.2-1.3); Total Protein 8.4 g/dl (6.3-8.2); eGFR > 60.00
--- NOTE | 2024-07-29 22:30 | ED.GENMED ---
History of Present Illness
General
Chief Complaint: Dizziness
Source: family
Exam Limitations: other (Language barrier)
Time Seen by Provider: 07/29/24 22:10
History of Present Illness
History of Present Illness:
This is a 84 year old female that comes in with c/o dizziness and weakness according to family. State that she was so weak she couldn't stand up. States that she also felt SOB. State that she went today and had her Dupixent 300mg injection. States
that this just started the once a month treatment. Prior to today she was getting her injection twice a month. Denies feeling like this with prior injections. Patient states that she felt like thinks were going around in her head. Denies any fever,
chills, chest pain, abd pain, nausea, vomiting, diarrhea, headache, urinary burning.
Past History
Past History
ED Past Medical History: HTN, Hypercholesterolemia and Other (Eczema)
ED Past Surgical History: None
Social History
Tobacco: Non-smoker
Alcohol: None
Personal:
Living: with family
Review of Systems
Review of Systems
Other source history: family
All Other Systems: ROS reviewed and negative except as documented in HPI and ROS
Constitutional: Reports no symptoms; Denies fever or chills
EENT: Reports no symptoms
Respiratory: Reports trouble breathing; Denies cough
Cardiac: Denies chest pain
ABD/GI: Reports no symptoms; Denies abdominal pain, nausea, vomiting or diarrhea
: Reports no symptoms
Musculoskeletal: Reports no symptoms
Skin: Reports no symptoms
Neurological: Reports dizzy; Denies headache
Psychiatric: Reports no symptoms
Phy Exam
General Physical Exam
General Presentation: no apparent distress
General age: appears stated age
General Skin: warm and dry
General Habitus: elderly
General Mental: alert
General Hydration: appears well hydrated
ENT Exam
ENT Exam: TM's normal, pharynx normal and neck supple
Eye Exam
Eye Exam: EOMI
Cardiovascular Exam
Cardiovascular Exam: regular rate/rhythm, no edema, no murmur and normal peripheral pulses
Pulmonary Exam
Pulmonary Exam: lungs clear, no respiratory distress, no rales, chest non tender, no crackles, no rhonchi, no wheezing and no cough
Gastrointestinal Exam
Gastrointestinal Exam: normal bowel sounds, non tender, soft, no organomegaly, no pulsatile mass and non distended
Musculoskeletal Exam
Musculoskeletal Exam: full ROM and no edema
Skin Exam
Skin Exam: normal color, warm/dry, no rash and no petechia
Psychiatric Exam
Psychiatric Exam: normal mood/affect
Course
Orders/Labs/Results
Orders:
Orders
07/29/24 18:36
Electrocardiogram (*1) Urgent
Reason for Study: Vertigo / Dizzy
EKG- Treatment ONCE
07/29/24 18:49
Complete Blood Count/With Diff Urgent
Comprehensive Metabolic Panel Urgent
07/29/24 22:29
CT Head W/o Iv Contrast Urgent
Comment:
Reason For Exam: Dizziness
0.9% Sodium Chloride 1000 ml [Nss] 1,000 ml IV BOLUS
07/29/24 22:42
COVID-19 Antigen Urgent
Source: Nasal Swab
Troponin I Urgent
Urinalysis Reflex To Culture Urgent
Date Specimen was Collected: 07/29/24
Time Specimen was Collected: 18:36
Abnormal Lab Results
07/29/24
18:49
Absolute Lymphs (auto) 0.7 L 10^3/uL
(1.2-3.4)
Neutrophils % 77.0 H %
(42.2-75.2)
Lymphocytes % 11.7 L %
(20.5-51.1)
Monocytes % 10.3 H %
(1.7-9.3)
Sodium 134 L mmol/L
(135-145)
Chloride 95 L mmol/L
(98-107)
Glucose 163 H mg/dl
(70-99)
Total Protein 8.4 H g/dl
(6.3-8.2)
Albumin 5.4 H g/dl
(3.5-5.0)
07/29/24 18:49
07/29/24 18:49
Hyperglycemia, Total protein slightly elevated. Albumin slightly elevated. Troponin <0.012, Urine negative for infection. COVID negative.
Vital Signs
Initial and Last Documented VS:
Initial Vital Signs
Temp Pulse Resp BP Pulse Ox
98.7 F 77 16 138/73 98
07/29/24 18:33 07/29/24 18:33 07/29/24 18:33 07/29/24 18:33 07/29/24 18:33
Last Documented Vital Signs
Temp Pulse Resp BP Pulse Ox
98.7 F 77 16 138/73 98
07/29/24 18:33 07/29/24 18:33 07/29/24 18:33 07/29/24 18:33 07/29/24 18:33
MDM/Problems Addressed
Differential Diagnosis Includes:
Dizziness unspecified, Dehydration. UTI
MDM/Problems Addressed:
This is a 84 year old female that is brought in by family with c/o SOB and dizziness. States that she got her Dupixent injection today and after this she felt dizzy, SOB and weak.
Will check labs. CT head, give IV fluids and get urine
Back into see patient and family. Patient states that she is feeling better. Got patient OOB and she was able to walk to the bathroom. Will discharge patient home. Explained that this may be due to her Injection that she received today. Patient to
follow up with the family doctor. Return with any concerns.
Chronic conditions affecting care:
NA
Acute Exacerbation and/or Progression of Chronic Illness:
NA
*Radiology
Radiology exam reviewed: radiology read reviewed (CT head- No acute intracranial abnormality. No acute territorial infarct, hemorrhage, mass eggect or midline shift. Mild microangiopathy. )
*Pulse Oximetry
Patient hypoxic: no
*EKG
Interpreted by ED Provider?: Yes
Heart Rate: 76
Rate: normal
Rhythm: sinus
[place]: left axis deviation
Interval: normal interval
QRS Pattern: normal QRS
Ischemia: no ischemia
*Insurance Underwriter Interpretation
Rate: normal
Heart Rate: 68
Rhythm: sinus
*Critical Care Note
Total Time (30-74mins, 75-104mins- exclusive of procedures): Not Applicable
ED Attending Note
-
Portions of this chart may have been created with voice recognition software.� Occasional wrong word or��sound alike� substitutions may have occurred due to the inherent limitations of voice recognition software.
Discharge Plan
Departure
Patient Disposition: Home (Routine Discharge)
Date of Disposition: 07/30/24
Time of Disposition: 00:35
Patient with high blood pressure during this ER visit?: Yes
Condition: Good
Covid-19: Not Applicable
Discharge Problem:
Dizziness, Weakness
Instructions: Weakness ED, Dizziness, BLOOD PRESSURE
Prescriptions:
No Action
Amlodipine Bestlate
5 mg PO DAILY
atorvastatin 20 mg Tablet
20 mg PO DAILY
ketorolac 10 mg Tablet
10 mg PO Q8H PRN (Reason: pain)
Rx Instructions:
maximum total duration of 5 days from all oral, intranasal, or parenteral formulations
pitavastatin calcium 4 mg Tablet
4 mg PO DAILY
Paxlovid 300 mg (150 mg x 2)-100 mg tablets,dose pack
See Rx Instructions .ROUTE .COMPLEX Qty: 30 0RF
Rx Instructions:
take TWO 150 mg tablets of nirmatrelvir with ONE 100 mg tablet of ritonavir twice daily for 5 days
Referrals:
Zeb Bowers MD [Family Provider] - Follow up in 2-3 days
Activity Restrictions/Additional Instructions:
As discussed, your blood work shows that your Blood sugar is elevated. This is a nonfasting blood sugar. Your Urine is negative for infection, you are negative for COVID and your Troponin is normal. Your CT of the head is normal. Please increase
your water intake to 8-8oz glasses daily. Please follow up with the family doctor on Thursday for recheck. This may all be related to her Injection. IF YOU HAVE INCREASED DIZZINESS OR YOU HAVE ANY OTHER CONCERNS PLEASE RETURN TO THE EMERGENCY ROOM.
Interventions
Interventions:
*Risk Screen - Suicide Last Done: 07/29/24 18:33
*Neglect/Abuse Screening Last Done: 07/29/24 18:33
Discharge Date and Time
Print Language: CYMRAES
[2024-07-29] MEDS: NSS 1000 IV (22:46)
[2024-07-29 22:52] LABS: Urine Albumin Negative (Neg - Trace); Urine Bilirubin Negative (Negative); Urine Character Clear (Clear); Urine Color Yellow; Urine Glucose Negative (Negative); Urine Ketone Negative (Negative); Urine Leukocyte Negative (Negative); Urine Nitrite Negative (Negative); Urine Occult Blood Negative (Negative); Urine Urobilinogen Negative (Neg - 1+); Urine pH 6.5 (5.0-9.0)
[2024-07-29 23:00] VITALS: BP 135/72
[2024-07-29 23:06] LABS: COVID-19 Antigen Negative (Negative)
[2024-07-29 23:19] LABS: Troponin I < 0.012 ng/ml
== END 2024-07-30 01:43 | disposition home or self-care (01) ==
LOC: EMR 18:29
PROVIDERS: Clinical Nurse Specialist Family Health; Registered Nurse; EMERGENCY PHYSICIAN Emergency Medicine; FAMILY PHYSICIAN Family Medicine
DX: R42 Dizziness and giddiness (principal); R53.1 Weakness; I10 Essential (primary) hypertension
CPT/HCPCS: 99285; 96360; 70450; 80053; 81003; 84484; 85025; 87811; 93005

== ENCOUNTER 2024-08-01 00:16 | Emergency (ER) | payer MEDICARE, OTHER, SELFPAY ==
[2024-08-01 00:18] VITALS: BP 140/71
[2024-08-01 00:37] VITALS: BMI 22.2
[2024-08-01 00:49] LABS: % Basophils 0.9 % (0-2); % Eosinophils 2.8 % (0-6); % Immature Granulocytes 0.2 % (0-0.5); % Lymphocytes 20.2 % (20.5-51.1); % Neutrophils 59.9 % (42.2-75.2); Absolute Eosinophils 0.1 10^3/uL (0-0.7); Absolute Monocytes 0.8 10^3/uL (0.1-0.6); Absolute Neutrophils 2.8 10^3/uL (1.4-6.5); Hematocrit 33.9 % (37.0-47.0); Mean Corp Hgb Conc. 35.4 g/dL (33.0-37.0); Mean Corpuscular Hgb 28.9 pg (27.0-31.0); Mean Corpuscular Volume 81.7 fL (81.0-99.0); Mean Platelet Volume 9.7 fL (7.4-10.4); Nucleated Red Blood Cells % 0 %; Platelet Count 193 10^3/uL (130-400); Red Blood Cell Count 4.15 10^6/uL (4.20-5.40); Red Cell Dist. Width 13.8 % (11.5-14.5); White Blood Cell Count 4.7 10^3/uL (4.8-10.8)
[2024-08-01 01:10] LABS: ALT (SGPT) 24 U/L (0-35); AST (SGOT) 31 U/L (14-36); Alkaline Phosphatase 81 U/L (38-126); Blood Urea Nitrogen 9 mg/dl (7-17); Calcium 9.3 mg/dl (8.4-10.2); Carbon Dioxide 23 mmol/L (22-30); Chloride 97 mmol/L (98-107); Estimated Creatinine Clearance 51 ml/min; Glucose 124 mg/dl (70-99); Potassium 3.7 mmol/L (3.5-5.1); Sodium 132 mmol/L (135-145); Total Bilirubin 0.8 mg/dl (0.2-1.3); Total Protein 7.9 g/dl (6.3-8.2); eGFR > 60.00
[2024-08-01 01:13] LABS: COVID-19 Antigen Negative (Negative)
[2024-08-01 01:47] VITALS: BP 125/59
--- NOTE | 2024-08-01 02:01 | ED.GENMED ---
History of Present Illness
General
Chief Complaint: Cough
Source: family (daughter)
Exam Limitations: none
Time Seen by Provider: 08/01/24 00:58
History of Present Illness
History of Present Illness:
This is a 84 year old female that is brought in by her family with c/o cough. States that the patient says that there is mucous in her chest and its stuck. States that she has been coughing a lot and is tired. State that she said she was SOB and
constipated. Patient was seen her on Thursday. Denies any fever, chills, chest pain, abd pain, nausea, vomiting, diarrhea, headache, dizziness, urinary burning.
Past History
Past History
ED Past Medical History: HTN, Hypercholesterolemia and Other (Eczema, Bronchitis)
ED Past Surgical History: None
Social History
Tobacco: Non-smoker
Alcohol: None
Personal:
Living: with family
Review of Systems
Review of Systems
All Other Systems: ROS reviewed and negative except as documented in HPI and ROS
Constitutional: Reports no symptoms; Denies fever or chills
EENT: Reports no symptoms
Respiratory: Reports cough and trouble breathing
Cardiac: Reports no symptoms; Denies chest pain
ABD/GI: Reports constipated; Denies abdominal pain, nausea or diarrhea
: Reports no symptoms; Denies dysuria, frequency or urgency
Musculoskeletal: Reports no symptoms
Skin: Reports no symptoms
Neurological: Reports no symptoms; Denies dizzy or headache
Psychiatric: Reports no symptoms
Phy Exam
General Physical Exam
General Presentation: no apparent distress
General age: appears stated age
General Skin: warm and dry
General Habitus: normal
General Mental: alert
General Hydration: appears well hydrated
ENT Exam
ENT Exam: TM's normal, pharynx normal and neck supple
Eye Exam
Eye Exam: EOMI
Cardiovascular Exam
Cardiovascular Exam: regular rate/rhythm, no edema and normal peripheral pulses
Pulmonary Exam
Pulmonary Exam: lungs clear, no respiratory distress, no rales, chest non tender, no crackles, no rhonchi, no wheezing and no cough (Have not heard patient cough)
Gastrointestinal Exam
Gastrointestinal Exam: normal bowel sounds, non tender, soft, no organomegaly, no pulsatile mass and non distended
Musculoskeletal Exam
Musculoskeletal Exam: full ROM and no edema
Skin Exam
Skin Exam: normal color, warm/dry, no rash and no petechia
Psychiatric Exam
Psychiatric Exam: normal mood/affect
Course
Orders/Labs/Results
Orders:
Orders
08/01/24 00:21
Electrocardiogram (*1) Urgent
Reason for Study: Shortness of Breath
EKG- Treatment ONCE
08/01/24 00:41
COVID-19 Antigen Urgent
Source: Nasal Swab
Complete Blood Count/With Diff Urgent
Comprehensive Metabolic Panel Urgent
Influenza A+B Rapid Molecular Urgent
MARIA EUGENIA Source: Nasal Swab
Specimen Description:
08/01/24 01:13
CR Chest - 2 Views Urgent
Comment:
Reason For Exam: cough
08/01/24 02:00
Dexamethasone Sod Phosphate [Decadron] 10 mg IV NOW STA
Doxycycline [Vibramycin] 100 mg PO NOW STA
08/01/24 02:00
Benzonatate [Tessalon Perles] 100 mg PO NOW STA
Abnormal Lab Results
08/01/24
00:41
WBC 4.7 L 10^3/uL
(4.8-10.8)
RBC 4.15 L 10^6/uL
(4.20-5.40)
Hct 33.9 L %
(37.0-47.0)
Absolute Lymphs (auto) 1.0 L 10^3/uL
(1.2-3.4)
Absolute Monos (auto) 0.8 H 10^3/uL
(0.1-0.6)
Lymphocytes % 20.2 L %
(20.5-51.1)
Monocytes % 16.0 H %
(1.7-9.3)
Sodium 132 L mmol/L
(135-145)
Chloride 97 L mmol/L
(98-107)
Creatinine 0.5 L mg/dL
(0.6-1.0)
Glucose 124 H mg/dl
(70-99)
08/01/24 00:41
08/01/24 00:41
sodium slightly low. Glucose nonfasting. COVID and influenza negative.
Vital Signs
Initial and Last Documented VS:
Initial Vital Signs
Temp Pulse Resp BP Pulse Ox
99.1 F 69 16 140/71 98
08/01/24 00:18 08/01/24 00:18 08/01/24 00:18 08/01/24 00:18 08/01/24 00:18
Last Documented Vital Signs
Temp Pulse Resp BP Pulse Ox
99.1 F 63 25 125/59 97
08/01/24 00:18 08/01/24 01:47 08/01/24 01:47 08/01/24 01:47 08/01/24 01:47
MDM/Problems Addressed
Differential Diagnosis Includes:
Bronchitis, PNA
MDM/Problems Addressed:
This is a 84 year old female that is brought in by her family with c/o cough. States that that the patient says there is a lot of mucous and it is stuck.
Will check labs and get Chest x-ray, COVID and influenza.
Back into see patient and family. Explained that she is negative for COVID and Influenza. chest x-ray appears normal. However, with patient c/o coughing and mucous will treat as Bronchitis and give Steroids to decrease the inflammation, Antibiotic
and Tessalon Perles for the cough. Patient to increased her water intake and follow up with the Family doctor. Return with any concerns.
Chronic conditions affecting care:
NA
Acute Exacerbation and/or Progression of Chronic Illness:
NA
*Pulse Oximetry
Patient hypoxic: no
*EKG
Interpreted by ED Provider?: Yes
Heart Rate: 72
Rate: normal
Rhythm: sinus
[place]: normal axis
Interval: first degree heart block
QRS Pattern: normal QRS
Ischemia: no ischemia
*Director Product Development Interpretation
Rate: Director Product Development- N/A
*Critical Care Note
Total Time (30-74mins, 75-104mins- exclusive of procedures): Not Applicable
ED Attending Note
-
Portions of this chart may have been created with voice recognition software.� Occasional wrong word or��sound alike� substitutions may have occurred due to the inherent limitations of voice recognition software.
Discharge Plan
Departure
Patient Disposition: Home (Routine Discharge)
Date of Disposition: 08/01/24
Time of Disposition: 02:03
Patient with high blood pressure during this ER visit?: No
Condition: Good
Covid-19: Negative COVID-19
Discharge Problem:
Bronchitis
Instructions: Acute Bronchitis, Adult (DC), Cough, Adult (DC)
Prescriptions:
New
benzonatate 100 mg capsule
100 mg PO TID PRN (Reason: Cough) Qty: 15 0RF
doxycycline hyclate 100 mg capsule
100 mg PO BID Qty: 14 0RF
No Action
Amlodipine Bestlate
5 mg PO DAILY
atorvastatin 20 mg Tablet
20 mg PO DAILY
ketorolac 10 mg Tablet
10 mg PO Q8H PRN (Reason: pain)
Rx Instructions:
maximum total duration of 5 days from all oral, intranasal, or parenteral formulations
pitavastatin calcium 4 mg Tablet
4 mg PO DAILY
Paxlovid 300 mg (150 mg x 2)-100 mg tablets,dose pack
See Rx Instructions .ROUTE .COMPLEX Qty: 30 0RF
Rx Instructions:
take TWO 150 mg tablets of nirmatrelvir with ONE 100 mg tablet of ritonavir twice daily for 5 days
Referrals:
Zeb Bowers MD [Family Provider] - Call in 1-3 days for appt
Activity Restrictions/Additional Instructions:
As discussed, her white blood cell count is normal. She is negative for COVID and Influenza. This may be a Bronchitis. She has been given IV steroids here that will decrease the inflammation and help decrease the cough. She has also been given
Tessalon Perles here that will help with the cough. She has been given her first dose of antibiotic here and a prescription has been sent to your Pharmacy. A second prescription for the Tessalon Perles has also been sent to the pharmacy. Please
increase your water intake to 8-8oz glasses daily. Follow up with the family doctor for recheck. IF YOU HAVE ANY OTHER CONCERNS PLEASE RETURN TO THE EMERGENCY ROOM.
Interventions
Interventions:
*General Assessment Last Done: 08/01/24 00:18
*Neglect/Abuse Screening Last Done: 08/01/24 00:18
*ED COVID-19 Vaccine History Last Done: 08/01/24 00:18
Discharge Date and Time
Print Language: ROMANIAN
[2024-08-01] MEDS: VIBRAMYCIN 100 MG PO (02:25)
[2024-08-01] MEDS: DECADRON 10 MG IV (02:25)
[2024-08-01] MEDS: TESSALON PERLES 100 MG PO (02:25)
== END 2024-08-01 02:35 | disposition home or self-care (01) ==
LOC: EMR 00:16
PROVIDERS: EMERGENCY PHYSICIAN Emergency Medicine; FAMILY PHYSICIAN Family Medicine
DX: J40 Bronchitis, not specified as acute or chronic (principal); I10 Essential (primary) hypertension; E78.00 Pure hypercholesterolemia, unspecified
CPT/HCPCS: 96374; 99285; 71046; 80053; 85025; 87502; 87811; 93005

== ENCOUNTER 2025-05-15 19:59 | Emergency (ER) | payer MEDICARE, OTHER, SELFPAY ==
[2025-05-15 20:08] VITALS: BP 144/70
[2025-05-15 20:16] LABS: Glucose - Point of Care 120 mg/dl (70-99)
[2025-05-15 20:30] LABS: Hematocrit 36.2 % (37.0-47.0); Hemoglobin 12.3 g/dL (12.0-16.0); Mean Corp Hgb Conc. 34.0 g/dL (33.0-37.0); Mean Corpuscular Volume 83.8 fL (81.0-99.0); Nucleated Red Blood Cells % 0 %; Platelet Count 240 10^3/uL (130-400); Red Cell Dist. Width 13.2 % (11.5-14.5)
[2025-05-15 20:44] LABS: ALT (SGPT) 24 U/L (0-35); AST (SGOT) 28 U/L (14-36); Albumin 5.3 g/dl (3.5-5.0); Alkaline Phosphatase 78 U/L (38-126); Blood Urea Nitrogen 12 mg/dl (7-17); Calcium 9.4 mg/dl (8.4-10.2); Carbon Dioxide 25 mmol/L (22-30); Chloride 97 mmol/L (98-107); Glucose 116 mg/dl (70-99); Potassium 4.4 mmol/L (3.5-5.1); Sodium 133 mmol/L (135-145); Total Protein 9.1 g/dl (6.3-8.2); eGFR > 60.00
[2025-05-15 21:00] VITALS: BP 148/69
[2025-05-15] MEDS: DUONEB 3 ML INH (21:34)
[2025-05-15] MEDS: NSS 1000 IV (21:34)
--- NOTE | 2025-05-15 21:37 | ED.GENMED ---
History of Present Illness
General
Chief Complaint: Weakness
Source: patient, records and family
Exam Limitations: none
Time Seen by Provider: 05/15/25 21:09
Nursing documentation reviewed up to this point in time: agreed with
History of Present Illness
History of Present Illness:
84-year-old female presents with cough fatigue weakness sleepiness admitted to [facility] about a week ago told that she had pneumonia although we discharged with a diagnosis of bronchitis on Zithromax, and a new antihypertensive, felt
better at discharge for a day or so evident symptoms worsen, family tells me that during her admission when she received some IV antibiotics she started shaking, family is unsure which antibiotic it was, nothing is listed on her discharge summary
about this, patient has been eating okay although less so this week
Past History
Past History
ED Past Medical History: HTN, Hypercholesterolemia and Other (Eczema, Bronchitis)
ED Past Surgical History: None
Social History
Tobacco: Non-smoker
Alcohol: None
Drug: None
Personal:
Living: with family
Employment: Retired
Review of Systems
Review of Systems
All Other Systems: Not applicable
Constitutional: Reports fatigue; Denies fever
Respiratory: Reports cough and trouble breathing
Cardiac: Reports no symptoms
ABD/GI: Reports no symptoms; Denies abdominal pain, nausea or diarrhea
: Reports no symptoms
Musculoskeletal: Reports no symptoms
Neurological: Reports weakness
Phy Exam
Physical Exam
Physical Exam:
Physical Exam
General: 84-year-old female coughing
Neck: Lips are slightly dry
Heart: Regular
Lungs: Rhonchi left greater than right
Abdomen: Soft nontender
Neuro: Response to verbal stimuli eyes are open globally weak
Skin: no rash
Psychiatric: Flat affect cooperative
Extremities: no edema.
Course
Orders/Labs/Results
Orders:
Orders
05/15/25 20:13
CR Chest - 2 Views Urgent
Comment:
Reason For Exam: generalized weakness, cough
05/15/25 20:16
Complete Blood Count/With Diff Urgent
Comprehensive Metabolic Panel Urgent
05/15/25 21:31
Electrocardiogram (*1) Urgent
Reason for Study: Shortness of Breath
EKG- Treatment ONCE
0.9% Sodium Chloride 1000 ml [Nss] 1,000 ml IV BOLUS
Ipratropium/Albuterol Sulfate [Duoneb] 3 ml INH R NOW STA
05/15/25 21:39
Troponin I Urgent
05/15/25 22:49
CT Head W/o Iv Contrast Urgent
Comment:
Reason For Exam: right arm shaking
diazePAM [Valium Injection] 5 mg IV NOW STA
Ceribell [Rapid Point of Care EEG (ED/ICU ONLY)] Q1H
Indications for use:: Altered Mental Status
Abnormal Lab Results
05/15/25 05/15/25
20:15 20:16
Hct 36.2 L %
(37.0-47.0)
Absolute Neuts (auto) 7.2 H 10^3/uL
(1.4-6.5)
Absolute Lymphs (auto) 0.8 L 10^3/uL
(1.2-3.4)
Absolute Monos (auto) 0.8 H 10^3/uL
(0.1-0.6)
Neutrophils % 78.9 H %
(42.2-75.2)
Lymphocytes % 8.6 L %
(20.5-51.1)
Sodium 133 L mmol/L
(135-145)
Chloride 97 L mmol/L
(98-107)
Glucose 116 H mg/dl
(70-99)
Total Protein 9.1 H g/dl
(6.3-8.2)
Albumin 5.3 H g/dl
(3.5-5.0)
POC Glucose 120 H mg/dl
(70-99)
05/15/25 20:16
05/15/25 20:16
Vital Signs
Initial and Last Documented VS:
Initial Vital Signs
Temp Pulse Resp BP Pulse Ox
98.4 F 75 18 144/70 95
05/15/25 20:08 05/15/25 20:08 05/15/25 20:08 05/15/25 20:08 05/15/25 20:08
Last Documented Vital Signs
Temp Pulse Resp BP Pulse Ox
98.4 F 72 16 144/70 98
05/15/25 20:08 05/15/25 20:30 05/15/25 20:30 05/15/25 20:08 05/15/25 21:40
MDM/Problems Addressed
Differential Diagnosis Includes:
Pneumonia bronchitis heart failure less likely PE deconditioning electrolyte abnormality
MDM/Problems Addressed:
Weakness fatigue cough
Chronic conditions affecting care:
Hypertension
Acute Exacerbation and/or Progression of Chronic Illness:
Hypertension
*Radiology
Radiology exam reviewed: preliminary read by ED provider
*Pulse Oximetry
SaO2: 98
Oxygen Mode of Delivery: Room air
Patient hypoxic: no
*Critical Care Note
Total Time (30-74mins, 75-104mins- exclusive of procedures): Not Applicable
Update Note
Update Note:
10:45 PM update called to the room patient with repetitive shaking of her right arm previously was shaking with her left leg, and the patient is makah language appears to be awake,
Will check CT of the head start benzodiazepine, check EEG
12:30 PM no longer shaking, unclear if this was a seizure or tremor psychogenic? Apparently prior to having right arm shaking had left leg shaking for the nurse
CT head noted, chest x-ray noted patient appears calm
1:40 AM patient calm breathing better reviewed workup with family they are okay with her going home
ED Attending Note
-
Portions of this chart may have been created with voice recognition software.� Occasional wrong word or��sound alike� substitutions may have occurred due to the inherent limitations of voice recognition software.
Discharge Plan
Departure
Patient Disposition: Home (Routine Discharge)
Date of Disposition: 05/16/25
Time of Disposition: 01:44
Patient with high blood pressure during this ER visit?: No
Condition: Good
Discharge Problem:
Bronchitis
Instructions: Acute bronchitis in adults
Prescriptions:
New
methylprednisolone [Medrol (Dimitry)] 4 mg tablets,dose pack
See Rx Instructions .ROUTE .COMPLEX Qty: 21 0RF
Rx Instructions:
for 6 days
albuterol sulfate [Ventolin HFA] 90 mcg/actuation HFA aerosol inhaler
1 inh inhalation Q4H PRN (Reason: shortness of breath or wheezing) Qty: 8.5 2RF
No Action
Amlodipine Bestlate
5 mg PO DAILY
atorvastatin 20 mg Tablet
20 mg PO DAILY
ketorolac 10 mg Tablet
10 mg PO Q8H PRN (Reason: pain)
Rx Instructions:
maximum total duration of 5 days from all oral, intranasal, or parenteral formulations
pitavastatin calcium 4 mg Tablet
4 mg PO DAILY
Paxlovid 300 mg (150 mg x 2)-100 mg tablets,dose pack
See Rx Instructions .ROUTE .COMPLEX Qty: 30 0RF
Rx Instructions:
take TWO 150 mg tablets of nirmatrelvir with ONE 100 mg tablet of ritonavir twice daily for 5 days
benzonatate 100 mg capsule
100 mg PO TID PRN (Reason: Cough) Qty: 15 0RF
doxycycline hyclate 100 mg capsule
100 mg PO BID Qty: 14 0RF
Referrals:
Zeb Bowers MD [Family Provider, Family Practice] - Tomorrow
Interventions
Interventions:
*Risk Screen - Suicide Last Done: 05/15/25 20:08
*General Assessment Last Done: 05/15/25 20:08
*Neglect/Abuse Screening Last Done: 05/15/25 20:08
*ED- Fall Risk Assessment Last Done: 05/15/25 20:57
*ED COVID-19 Vaccine History Last Done: 05/15/25 20:57
ED- Cardiac Assessment Last Done: 05/15/25 20:51
ED- Neurological Assessment Last Done: 05/15/25 20:58
ED- Pulmonary Assessment Last Done: 05/15/25 20:51
Discharge Date and Time
Print Language: GUINEAN
[2025-05-15 22:00] VITALS: BP 140/63
[2025-05-15 22:15] LABS: Troponin I < 0.012 ng/ml
[2025-05-15] MEDS: VALIUM INJECTION 5 MG IV (22:54)
[2025-05-15 23:00] VITALS: BP 128/64
--- NOTE | 2025-05-16 01:47 | ED.GENMED ---
History of Present Illness
General
Chief Complaint: Weakness
Time Seen by Provider: 05/15/25 21:09
Past History
Past History
ED Past Medical History: HTN, Hypercholesterolemia and Other (Eczema, Bronchitis)
ED Past Surgical History: None
Social History
Tobacco: Non-smoker
Alcohol: None
Drug: None
Personal:
Living: with family
Employment: Retired
Course
Orders/Labs/Results
Orders:
Orders
05/15/25 20:13
CR Chest - 2 Views Urgent
Comment:
Reason For Exam: generalized weakness, cough
05/15/25 20:16
Complete Blood Count/With Diff Urgent
Comprehensive Metabolic Panel Urgent
05/15/25 21:31
Electrocardiogram (*1) Urgent
Reason for Study: Shortness of Breath
EKG- Treatment ONCE
0.9% Sodium Chloride 1000 ml [Nss] 1,000 ml IV BOLUS
Ipratropium/Albuterol Sulfate [Duoneb] 3 ml INH R NOW STA
05/15/25 21:39
Troponin I Urgent
05/15/25 22:49
CT Head W/o Iv Contrast Urgent
Comment:
Reason For Exam: right arm shaking
diazePAM [Valium Injection] 5 mg IV NOW STA
Ceribell [Rapid Point of Care EEG (ED/ICU ONLY)] Q1H
Indications for use:: Altered Mental Status
Abnormal Lab Results
05/15/25 05/15/25
20:15 20:16
Hct 36.2 L %
(37.0-47.0)
Absolute Neuts (auto) 7.2 H 10^3/uL
(1.4-6.5)
Absolute Lymphs (auto) 0.8 L 10^3/uL
(1.2-3.4)
Absolute Monos (auto) 0.8 H 10^3/uL
(0.1-0.6)
Neutrophils % 78.9 H %
(42.2-75.2)
Lymphocytes % 8.6 L %
(20.5-51.1)
Sodium 133 L mmol/L
(135-145)
Chloride 97 L mmol/L
(98-107)
Glucose 116 H mg/dl
(70-99)
Total Protein 9.1 H g/dl
(6.3-8.2)
Albumin 5.3 H g/dl
(3.5-5.0)
POC Glucose 120 H mg/dl
(70-99)
05/15/25 20:16
05/15/25 20:16
Vital Signs
Initial and Last Documented VS:
Initial Vital Signs
Temp Pulse Resp BP Pulse Ox
98.4 F 75 18 144/70 95
05/15/25 20:08 05/15/25 20:08 05/15/25 20:08 05/15/25 20:08 05/15/25 20:08
Last Documented Vital Signs
Temp Pulse Resp BP Pulse Ox
98.4 F 72 16 144/70 98
05/15/25 20:08 05/15/25 20:30 05/15/25 20:30 05/15/25 20:08 05/15/25 21:40
*Pulse Oximetry
SaO2: 98
Oxygen Mode of Delivery: Room air
ED Attending Note
-
Portions of this chart may have been created with voice recognition software.� Occasional wrong word or��sound alike� substitutions may have occurred due to the inherent limitations of voice recognition software.
Discharge Plan
Departure
Patient Disposition: Home (Routine Discharge)
Date of Disposition: 05/16/25
Time of Disposition: 01:44
Patient with high blood pressure during this ER visit?: No
Condition: Good
Discharge Problem:
Bronchitis
Instructions: Acute bronchitis in adults
Prescriptions:
New
methylprednisolone [Medrol (Dimitry)] 4 mg tablets,dose pack
See Rx Instructions .ROUTE .COMPLEX Qty: 21 0RF
Rx Instructions:
for 6 days
albuterol sulfate [Ventolin HFA] 90 mcg/actuation HFA aerosol inhaler
1 inh inhalation Q4H PRN (Reason: shortness of breath or wheezing) Qty: 8.5 2RF
No Action
Amlodipine Bestlate
5 mg PO DAILY
atorvastatin 20 mg Tablet
20 mg PO DAILY
ketorolac 10 mg Tablet
10 mg PO Q8H PRN (Reason: pain)
Rx Instructions:
maximum total duration of 5 days from all oral, intranasal, or parenteral formulations
pitavastatin calcium 4 mg Tablet
4 mg PO DAILY
Paxlovid 300 mg (150 mg x 2)-100 mg tablets,dose pack
See Rx Instructions .ROUTE .COMPLEX Qty: 30 0RF
Rx Instructions:
take TWO 150 mg tablets of nirmatrelvir with ONE 100 mg tablet of ritonavir twice daily for 5 days
benzonatate 100 mg capsule
100 mg PO TID PRN (Reason: Cough) Qty: 15 0RF
doxycycline hyclate 100 mg capsule
100 mg PO BID Qty: 14 0RF
Referrals:
Zeb Bowers MD [Family Provider, Family Practice] - Tomorrow
Interventions
Interventions:
*Risk Screen - Suicide Last Done: 05/15/25 20:08
*General Assessment Last Done: 05/15/25 20:08
*Neglect/Abuse Screening Last Done: 05/15/25 20:08
*ED- Fall Risk Assessment Last Done: 05/15/25 20:57
*ED COVID-19 Vaccine History Last Done: 05/15/25 20:57
ED- Cardiac Assessment Last Done: 05/15/25 20:51
ED- Neurological Assessment Last Done: 05/15/25 20:58
ED- Pulmonary Assessment Last Done: 05/15/25 20:51
Discharge Date and Time
Print Language: TRISTANIAN
[2025-05-16 01:49] VITALS: BP 138/69
[2025-05-16] MEDS: DECADRON 10 MG IV (01:49)
== END 2025-05-16 02:04 | disposition home or self-care (01) ==
LOC: EMR 19:59
PROVIDERS: EMERGENCY PHYSICIAN Emergency Medicine; FAMILY PHYSICIAN Family Medicine
DX: J40 Bronchitis, not specified as acute or chronic (principal); I10 Essential (primary) hypertension; E78.00 Pure hypercholesterolemia, unspecified
CPT/HCPCS: 94640; 96374; 96375; 96361; 99285; 70450; 71046; 80053; 82962; 84484; 85025; 93005